=== PATIENT | male | born 1960 | race Caucasian/White ===

== ENCOUNTER 2017-05-01 08:31 | Day surgery (SDC) | payer OTHER ==
[~2017-05-01] VITALS: Ht 182.9 cm; Wt 78.6 kg
[2017-05-01 08:50] VITALS: BP 101/66; PULSE 90; RESP 20; TEMP 98.2; O2SAT 97
[2017-05-01] MEDS ORDERED: SODIUM CHLOR 0.9% 1000 ML IV SCH (09:30)
[2017-05-01] MEDS ORDERED: LIDOCAINE HCL 1% PF 30 ML VIAL ONE (10:16)
[2017-05-01] MEDS ORDERED: MIDAZOLAM HCL 2 MG/2 ML VIAL ONE ×2 (10:37→11:26)
[2017-05-01 11:55] VITALS: BP 114/76; PULSE 86; RESP 16; TEMP 97.8; O2SAT 91
[2017-05-01] MEDS ORDERED: oxyCODONE/ACETAMINOPHEN 5 MG/325 MG TAB PO PRN (12:05)
[2017-05-01 12:10] VITALS: BP 116/80; PULSE 85; RESP 18; O2SAT 95
[2017-05-01 12:40] VITALS: BP 128/65; PULSE 84; RESP 16; O2SAT 92
[2017-05-01 13:10] VITALS: BP 118/65; PULSE 87; RESP 16; O2SAT 95
[2017-05-01 14:05] VITALS: BP 90/60; PULSE 108; RESP 20; O2SAT 99
--- NOTE | 2017-05-01 15:26 | RADRPT ---
EXAM DATE/TIME: 05/01/2017 11:09 [place] COMPARISON: No previous studies available for comparison. INDICATIONS : Monoclonal gammopathy. SEDATION TIME: 40 minutes BIOPSY SITE: Left iliac MEDICATION(S): 1.) 3 mg midazolam (Versed) IV 2.) 175 mcg fentanyl (Sublimaze) IV DEVICE(S): 1.) 11 gauge Bone marrow biopsy needle MEDICAL HISTORY : None. SURGICAL HISTORY : None. ENCOUNTER: Initial ACUITY: 1 day PAIN SCORE: 0/10 LOCATION: Left pelvis A total of one core specimen(s) were obtained and sent to the laboratory for pathologic evaluation. PROCEDURE: 1. CT guided bone marrow biopsy. 2. Conscious sedation with continuous EKG and oximetry monitoring. Prior to the procedure informed consent was obtained. Any appropriate prior imaging studies were rev iewed. Using automated exposure control and adjustment of the mA and/or kV according to patient size , radiation dose was kept as low as reasonably achievable to obtain optimal diagnostic quality images . DICOM format image data is available electronically for review and comparison. The site was prepped in a sterile fashion. Full sterile technique was used, including cap, mask, hernan rile gloves and gown and a large sterile sheet. Hand hygiene and 2% chlorhexidine and/or betadine/al cohol prep was utilized per protocol for cutaneous antisepsis. The skin and subcutaneous tissues wer e infiltrated with local anesthetic solution. With CT guidance the previously identified target was localized. Biopsy was performed using the presc ribed needle as above. Following biopsy marrow aspiration was performed with repeat puncture. Adequa te hemostasis was obtained with compression at the puncture site. Follow-up CT scan reveals no hemorrhage. Conscious sedation was performed with the prescribed dosages and duration as above in the presence of an independent trained radiology nurse to assist in the monitoring of the patient. EKG and oximetry remained stable throughout the procedure. The patient tolerated the procedure well and there were no complications. The patient was sent to Radiology Outpatient Unit in stable condition. CONCLUSION: 1. Uncomplicated CT guided bone marrow aspirate. 2. Uncomplicated CT guided bone marrow biopsy. Brennon Dunn MD on May 01, 2017 at 15:23 Board Certified Radiologist. This report was verified electronically.
== END 2017-05-01 14:30 | disposition home or self-care (01) ==
LOC: HRAD 08:31 → HRIP 08:34 → HRAD 14:30
PROVIDERS: ATTEND Internal Medicine
DX: D47.2 Monoclonal gammopathy (principal); E11.9 Type 2 diabetes mellitus without complications; I10 Essential (primary) hypertension; E78.5 Hyperlipidemia, unspecified; R26.0 Ataxic gait; M21.379 Foot drop, unspecified foot; I51.9 Heart disease, unspecified; G62.9 Polyneuropathy, unspecified
CPT/HCPCS: 38222; 77012; 85097; 88305; 88311; 88313; 88341; 88342; 99152; 99153; C1830; J2250; J3010; J7030

== ENCOUNTER 2017-07-16 08:08 | Day surgery (SDC) | payer OTHER ==
[~2017-07-16] VITALS: Ht 182.9 cm; Wt 79.0 kg
[2017-07-16 08:28] VITALS: BP 117/82; PULSE 70; RESP 18; TEMP 98.7; O2SAT 97
[2017-07-16] MEDS ORDERED: LENA2.5C PO (08:29)
[2017-07-16] MEDS ORDERED: ceFAZolin 2 GM PREMIX 50 ML - implanted port/tunneled catheter insertion IV SCH (08:45)
[2017-07-16] MEDS ORDERED: CHLORHEXIDINE GLUCONATE 2 % 1 PACK (2 CLOTHS) TOPICAL SCH (08:45)
[2017-07-16] MEDS ORDERED: VANCOMYCIN 1000 MG/NS 250 ML - implanted port/tunneled catheter IV SCH ×2 (08:45)
[2017-07-16] MEDS ORDERED: POVIDONE IODINE 5% (ANTISEPSIS KIT) 4 APPLICATIONS EACH NARE SCH (08:45)
[2017-07-16] MEDS ORDERED: SODIUM CHLORIDE 0.9% 1000 ML IV SCH (08:45)
[2017-07-16] MEDS ORDERED: LIDOCAINE 1%/EPINEPHrine 1:100,000 SOLN 20 ML VIAL ONE (09:02)
[2017-07-16 09:12] LABS: INTERNATIONAL NORMALIZED RATIO 1.2 RATIO
[2017-07-16] MEDS ORDERED: MIDAZOLAM HCL 2 MG/2 ML VIAL ONE ×2 (09:41→10:11)
[2017-07-16 10:33] VITALS: BP 114/96; PULSE 98; RESP 18; TEMP 98.3; O2SAT 94
--- NOTE | 2017-07-16 10:34 | PD.RAD ---
Post Procedure Progress Note Pre Procedure Diagnosis: (1) Myeloma Post Procedure Diagnosis: (1) Myeloma Procedure Date: Jul 16, 2017 Supervising Radiologist: Vaibhav Tompkins JR Proceduralist/Assist: Jie Null, RT(R)(), Monisha Srinivasan RT(R) Anesthesia: Conscious Sedation Plan of Activity Patient to Unit: [facility] Patient Condition: Good See PACS Report for procedural detail/treatment Central Venous Access Device Procedure 1 Right Internal Jugular Infusaport Placement single lumen Kinyarwanda: 8 Findings: Placed RIJ port. Functions well. OK to use. Plan F/U with IR or a physician in 10-14 days for a site check. Jr. Turner,Vaibhav Clement MD Jul 16, 2017 10:34
[2017-07-16] MEDS ORDERED: SODIUM CHLORIDE 0.9% FLUSH 10 ML FLUSH IVF PRN (10:45)
[2017-07-16 10:48] VITALS: BP 93/72; PULSE 91; RESP 18; O2SAT 97
[2017-07-16 11:18] VITALS: BP 104/72; PULSE 99; RESP 18; O2SAT 97
[2017-07-16 11:48] VITALS: BP 93/75; PULSE 95; RESP 18; O2SAT 97
[2017-07-16 12:30] VITALS: BP 98/57; PULSE 89; RESP 18; O2SAT 95
--- NOTE | 2017-07-16 14:45 | RADRPT ---
EXAM DATE: 07/16/2017 10:46 AM EDT AGE/SEX: 57 years / Male INDICATIONS: Patient present with myeloma in need of port placement for treatment. CLINICAL DATA: This is the patient's initial encounter. Patient reports that signs and symptoms have been present for 3 months and indicates a pain score of 6/10. MEDICAL/SURGICAL HISTORY: Chronic obstructive pulmonary disease. Hypertension. DM. Peripheral Neuropathy Gastric bypass. COMPARISON: No prior [facility] exams available for comparison. FLUORO TIME (min): .04 IMAGE SERIES: 1 SEDATION TIME (min): 25 MEDICATION(S): 2.5mg midazolam (Versed) IV 125mcg fentanyl (Sublimaze) IV DEVICE(S): Right 8F Infuse a Port . . PROCEDURE : 1. Continuous pulse oximetry and EKG monitoring. 2. Intravenous conscious sedation. 3. Ultrasound guidance for venous access. 4. Fluoroscopic guided implantable central venous port placement. The patient was placed supine. The neck was prepped in sterile fashion. Full sterile technique was u sed, including cap, mask, sterile gloves and gown, and a large sterile sheet. Hand hygiene and 2% ch lorhexidine Betadine was utilized per protocol for cutaneous antisepsis with appropriate dry time for site. Sterile gel and sterile probe cover were utilized for ultrasound guidance. The skin and sub cutaneous tissues were infiltrated with local anesthetic solution. Under direct ultrasound guidance, central venous access was accomplished in the targeted vessel. The ultrasound images depicting access guidance were stored and saved to PACS for permanent record. A s ubcutaneous pocket was created using blunt dissection. The port was introduced to the pocket. The c atheter tubing was fed through a subcutaneous tunnel to the venotomy site. The catheter tubing was c ut to a suitable length and then was introduced through a valved Peel-Away sheath and positioned with catheter tubing tip at the cavo-atrial junction level. The pocket incision was closed with subcutic ular Vicryl suture. Steri-Strips were applied. The port was flushed and locked with heparin solutio n per protocol. Sterile dressing was applied to the site. The patient tolerated the procedure well. Conscious sedation was performed with the prescribed dosages and duration as above in the presence of an independent trained radiology nurse to assist in the monitoring of the patient. EKG and oximetry remained stable throughout the procedure. The patient tolerated the procedure well and there were no complications. The patient was sent to post anesthesia recovery in stable condition. CONCLUSION: 1. Uncomplicated ultrasound and fluoroscopic guided implanted central venous port catheter placement as described in detail above. An 8 [place] [employer] port was placed. Electronically signed by: Vaihbav Tompkins MD 07/16/2017 2:44 PM EDT
== END 2017-07-16 12:35 | disposition home or self-care (01) ==
LOC: HROP 08:08 → HRIP 08:14 → HROP 12:35
PROVIDERS: ATTEND Internal Medicine Hematology & Oncology
DX: C90.00 Multiple myeloma not having achieved remission (principal); J44.9 Chronic obstructive pulmonary disease, unspecified; I10 Essential (primary) hypertension; E11.9 Type 2 diabetes mellitus without complications; G62.9 Polyneuropathy, unspecified; Z98.84 Bariatric surgery status; Z01.818 Encounter for other preprocedural examination
CPT/HCPCS: 36561; 76937; 77001; 85610; 85730; 99152; 99153; C1788; J1642; J2250; J3010